=== PATIENT | male | born 2005 | race Caucasian/White ===

== ENCOUNTER 2024-10-26 21:16 | Inpatient (IN) | payer OTHER ==
[~2024-10-26] VITALS: Ht 182.9 cm; Wt 72.3 kg
[2024-10-26] MEDS ORDERED: OXYC10ER (22:44)
[2024-10-26 22:57] LABS: Source, Urine Clean Catch
[2024-10-26 23:00] LABS: BASOPHILS ABSOLUTE AUTO 0.09 K/mm3 (0.00-0.23); BASOPHILS PERCENT AUTO 1 % (0-2); EOSINOPHILS ABSOLUTE AUTO 0.17 K/mm3 (0.00-0.68); EOSINOPHILS PERCENT AUTO 2 % (0-6); Hematocrit 41.8 % (37.0-53.0); Hemoglobin 13.8 g/dL (13.5-17.5); IMMATURE GRAN ABSOLUTE AUTO 0.02 K/mm3 (0.00-0.10); IMMATURE GRAN PERCENT AUTO 0 % (0-1); LYMPHOCYTES ABSOLUTE AUTO 2.57 K/mm3 (0.84-5.20); LYMPHOCYTES PERCENT AUTO 27 % (21-46); MONOCYTES ABSOLUTE AUTO 1.13 K/mm3 (0.16-1.47); MONOCYTES PERCENT AUTO 12 % (4-13); Mean Corpuscular HGB 28.6 pg (26.0-34.0); Mean Corpuscular Volume 87 fL (80-100); NEUTROPHILS ABSOLUTE AUTO 5.54 K/mm3 (1.96-9.15); NEUTROPHILS PERCENT AUTO 58 % (41-73); Platelet Count 340 K/mm3 (150-400); RDW Coefficient Variation 14.1 % (11.7-14.2); RDW Standard Deviation 45.1 fL (35.1-46.3); Red Blood Cell Count 4.83 M/mm3 (4.30-5.90); White Blood Cell Count 9.52 K/mm3 (4.00-11.30)
[2024-10-26 23:06] LABS: Bilirubin, Urine Neg (Neg); Blood, Urine Neg (Neg); Glucose Qualitative, Urine Neg (Neg); Ketones, Urine Neg (Neg); Leukocyte Esterase, Urine Neg (Neg); Nitrite, Urine Neg (Neg); Protein, Urine Neg (Neg); Urobilinogen, Urine NORM (Normal)
[2024-10-26 23:07] LABS: Appearance, Urine Clear (Clear); Color, Urine Yellow (P-Yellow)
[2024-10-26 23:19] LABS: U Amphetamine Screen Not Detected; U Barbituate Screen Not Detected; U Benzodiazapine Screen Not Detected; U Buprenorphine Screen Not Detected; U Cannabinoids Screen Not Detected; U Cocaine Screen Not Detected; U Methadone Screen Not Detected; U Methamphetamine Screen Not Detected; U Opiates Screen Not Detected; U Oxycodone Screen Not Detected; U Phencyclidine Screen Not Detected
[2024-10-26 23:20] LABS: Ethanol (Alcohol), Blood, Med <3 mg/dL; Salicylate <1.7 mg/dL (2.8-20.0)
[2024-10-26] MEDS ORDERED: LORazepam 2 MG/ML 1ML Injection IV ONE (23:25)
[2024-10-26 23:27] LABS: Acetaminophen, Random <2.0 ug/mL (10.0-30.0); Alanine Aminotransfer (ALT/SGP 60 U/L (12-78); Albumin, Blood 3.9 g/dL (3.4-5.0); Albumin/Globulin Ratio 1.1 (0.8-1.8); Alk Phos 54 U/L (50-136); Anion Gap 11 mmol/L (3-11); Aspartate Aminotrans (AST/SGOT 38 U/L (12-37); Bilirubin, Total 0.7 mg/dL (0.1-1.0); Blood Urea Nitrogen 14 mg/dL (8-24); Bun/Creatinine Ratio 17.4 (12.0-20.0); CO2, Blood 22 mmol/L (21-32); Calcium, Blood 9.3 mg/dL (8.5-10.1); Chloride, Blood 109 mmol/L (98-108); Creatinine, Blood 0.81 mg/dL (0.60-1.20); Globulin, Blood 3.7 g/dL (2.2-4.0); Glomerular Filtration Rate 129 (60-); Glucose, Blood 108 mg/dL (70-99); Potassium, Blood 3.9 mmol/L (3.5-5.5); Sodium, Blood 138 mmol/L (136-145); Total Protein, Blood 7.6 g/dL (6.4-8.2)
[2024-10-26] MEDS ORDERED: LORazepam 1 MG Tab PO ONE (23:30)
[2024-10-26] MEDS ORDERED: DiphenhydrAMINE HCl 50 MG Cap PO ONE (23:30)
[2024-10-27] MEDS ORDERED: Acetaminophen 500 MG Tab PO ONE ×2 (00:05→13:30)
[2024-10-27 00:38] LABS: Influenza A, PCR NEGATIVE (NEGATIVE); Influenza B, PCR NEGATIVE (NEGATIVE); Resp Syncytial Virus, PCR NEGATIVE (NEGATIVE); SARS-Cov-2 (COVID-19) PCR, MMC NEGATIVE (NEGATIVE)
[2024-10-27] MEDS ORDERED: Divalproex Sodium 500 MG TABLET.DR PO ONE (13:00)
[2024-10-27] MEDS ORDERED: OLANZapine 10 MG Tab PO ONE (13:00)
[2024-10-27] MEDS ORDERED: LORazepam 2 MG Tab PO PRN (13:50)
[2024-10-27] MEDS ORDERED: Ibuprofen 600 MG Tab PO PRN (13:50)
[2024-10-27] MEDS ORDERED: Haloperidol 5 MG Tab PO PRN (13:50)
[2024-10-27] MEDS ORDERED: LORazepam 2 MG/ML 1ML Injection IM PRN (13:50)
[2024-10-27] MEDS ORDERED: Melatonin 3 MG Tab PO PRN (13:55)
[2024-10-27] MEDS ORDERED: Polyethylene Glycol 3350 17 gm PO PRN (13:55)
[2024-10-27] MEDS ORDERED: TraZODone HCl 50 MG Tab PO PRN (13:55)
[2024-10-27] MEDS ORDERED: OLANZapine ODT 10 MG Tab MM PRN (13:55)
[2024-10-27] MEDS ORDERED: DiphenhydrAMINE HCl 50 MG Cap PO PRN (13:55)
[2024-10-27] MEDS ORDERED: HydrOXYzine Pamoate 50 MG Cap PO PRN (13:55)
[2024-10-27] MEDS ORDERED: Ondansetron 4 MG SoluTab MM PRN (13:55)
[2024-10-27] MEDS ORDERED: Aluminum Hydroxide 320MG/5ML 473 ML PO PRN (14:00)
[2024-10-27] MEDS ORDERED: Calcium Carbonate 500 MG Tab Chew PO PRN (14:00)
[2024-10-27] MEDS ORDERED: Acetaminophen 325 MG TABLET PO PRN (14:00)
[2024-10-27] MEDS ORDERED: FLU VACC TS2024-25(6MOS UP)/PF 45 MCG/0.5 ML SYRINGE IM ONE (14:00)
[2024-10-27] MEDS ORDERED: Haloperidol Lactate Inj. 5 MG/ML Injection IM PRN (14:00)
[2024-10-27] MEDS ORDERED: DiphenhydrAMINE HCl 50 MG/ML 1ML Vial IV PRN (14:00)
[2024-10-27 15:34] VITALS: BP 139/79
--- NOTE | 2024-10-27 16:19 | NUR ---
ADMIT NOTE.- PT FROM THE ER DEPT AT 1445. ALERT AND ORIENTED X2. SKIN ASSESSMENT COMPLETED. NO ISSUES PRESENT. PT MUMBLING WORDS AND UNSTEADY ON FEET. GOT PT INTO THE INTAKE ROOM AND HAD HIM SIGN FORMS. EXPLAINED EACH FORM AND HE VERBALIZED RETURN OF "OK" EACH TIME. SARTED TALKING TO THE PT ON HOW HE BECAME A PT HERE. HE SAID "I AM GOD" ASKED HIM WHAT NAME HE WOULD LIKE TO USE HERE DRING HIS STAY. "CHIEF, LIKE CHIEF OF THE [place]" HE STARTED MUMBLING WHEN ASKING QUESTIONS ON HIS INTAKE. HE KEPT FALLING ASLEEP. WAS ABLE TO GET HIM TO HIS BED WITH MINIMAL ASSISSTANCE. PT UNABLE TO PROVIDE ANSWERS FOR THE REST OF INTAKE INTERVIEW.. DR. RODGERS NOTIFIED OF PT'S UNABLE TO DO INTAKE AND WANTED TO SLEEP. WILL CONTINUE TO MONITOR.
--- NOTE | 2024-10-27 17:53 | NUR ---
SHIFT SUMMARY : PT CONTINUES TO SLEEP SINCE BEING ADMITTED TO U. WILL CONTINUE TO MONITOR
[2024-10-27 20:35] VITALS: BP 105/83
[2024-10-27] MEDS ORDERED: OLANZapine 10 MG Tab PO SCH (21:00)
[2024-10-27] MEDS ORDERED: Divalproex Sodium 500 MG TABLET.DR PO SCH (21:00)
[2024-10-27] MEDS ORDERED: TraZODone HCl 100 MG Tab PO SCH (21:00)
--- NOTE | 2024-10-28 06:24 | NUR ---
NOC SHIFT SUMMARY 1929: Pt wakes from nap and interacts with female peer supportively. Ate dinner during snack time with peers. Pleasant interactions with peers and staff. Redirectable when overshares around peers. Hyperverbal throughout shift. Grandiose/shinto delusions... "I'm the first rapper appointed by God." "God killed Hell. Everyone in Hell is now in Heaven. It's beautiful." "I need to leave, but I'll come back. I just need to get my medical marijuana and buy a Nintendo Switch, but then I'll be back." 2100: Pt's dad presents outside unit. MHA spoke to him and relayed pertinent info... Pt has reportedly been in a manic state for about 1 week prior to arrival. He wants to participate in pt's care planning. Pt was vague about his living situation d/t argument with father that led to admit. Father said he was attempting to orient pt to reality, which angered pt. Later in shift pt talks favorably about his dad ("he's the smartest man I know") when MHA informed pt that his Dad stopped by. His dad now is aware of visiting/phone hours. 0530: Wakes up euphoric, restless, walking between nurses' station and his room. Unable to remain in 1 location for more than a few minutes. Made a few requests for more sleep meds and "Oxy or Percocet" for his reported back injury. Gave pt distractions (books, headphones), which were minimally effective. Reports various ideas to staff in passing. "I love comic books! I just started reading in group home. I'm going to [facility] when I'm 23." [pt picks "The Holy Bible" and "Manic" from the book cart]
[2024-10-28 08:12] VITALS: BP 132/60
[2024-10-28] MEDS ORDERED: Multivitamins 1 Tab PO SCH (09:00)
[2024-10-28] MEDS ORDERED: RisperiDONE 1 MG Tab PO ONE (12:40)
--- NOTE | 2024-10-28 17:31 | NUR ---
SHIFT SUMMARY: PT ALERT, ORIENTED AND COOPERATIVE. PT PRESENT ON THE UNIT THROUGHOUT THE DAY. TALKATIVE WITH STAFF AND PEERS. PT WITH GRANDIOUS THOUGHTS, DISCUSSED THAT HE WILL BE PRESIDENT ONE DAY, THAT HE WILL PURCHASE THE HOSPITAL AND THAT HE IS A GOD. PT STATED THAT HE WANTED TO LEAVE BUT AFTER SPEAKING THE PROVIDER HAS AGREED TO STAY UNTIL THE . HIS FATHER CAME TO VISIT AND SPOKE WITH THE RADIOLOGY THERAPIST. PT MEDICATED WITH PRN FOR PAIN AND NAUSEA.
[2024-10-28 19:55] VITALS: BP 126/84
[2024-10-28] MEDS ORDERED: RisperiDONE 1 MG Tab PO SCH (21:00)
--- NOTE | 2024-10-28 21:56 | NUR ---
Shift Assessment: Night 10/28/24 Received Pt at 1900. Pt was pacing in the hallway as he listened to music. Denied SI/HI. Endorsed AH of "hearing all gods talking to me at all times." Was noted to be responding to internal stimuli AEB talking to unseen persons. Mood euphoric, affect congruent. Intense eye contact. Denied depression and anxiety. Perseverative over discharge throughout the evening; when offered refocus cues, Pt verbalized delusions of grandure, stating he was god and the president. Med compliant; received PRNs (see MAR) for sleeplessness. EKG completed without complications. Pt participated in evening wrap-up group. He complained of nausea after exating a large snack; he was provided PRN (see MAR.) He retired to bed without complications.
--- NOTE | 2024-10-29 05:53 | NUR ---
Shift Summary: NIght 10/28/24 Pt was pacing in the hallway at the start of shift. He had a limited ability to participate in assessment due to flight of thoughts/tangential thought pattern. Denied SI/HI; endorsed AH: "all gods talk to me all the time." He verbalized delusions of grandure, including being god and the president. Also verbalized paranoia: "the SWAT team is after me." Perseverative over discharge. He was med compliant; received PRNs (see MAR) for sleeplessness, and shortly thereafter retired to bed. He awoke around 44 complaining of a headache 02/10. He was provided PRN (see MAR) for pain as well as one for increased anxiety. Soon he verbalized increased AH; received PRN (see MAR.) This proved ineffective, and by 144, Pt was demonstrating unsafe behaviors due to lack of insight, such as climbing on his bed and spinning in circles and colliding with the snowden. He was unable to be refocused. Additional PRNs (see MAR) were provided to maintain his safety (via oral route.) He was able to decrease his unsafe behaviors, and later returned to resting. Plan: Continue to provide safe, therapeutic environment in which to work on TP goals. Continue discharge planning.
[2024-10-29 08:31] VITALS: BP 122/67
--- NOTE | 2024-10-29 18:53 | NUR ---
SHIFT SUMMARY PT AxOx3 WITH INTERMITTENT DELUSIONS OF GRANDEUR. PT IS PLEASANT AND COOPERATIVE WITH CARE AND DENIES SI/HI AND AVTH. FATHER, MAORI, IN FOR VISIT TODAY. MEDICATION CHANGES ORDERED BY PROVIDER TO BE IMPLEMENTED TONIGHT. PT HAS BEEN PARTICIPATING IN PARTS OF GROUP, BUT SEEMS TO BE TOO MANIC TO SIT STILL AND FOCUS ON THE DURATION OF THE TIME. PT ASKS FOR SNACKS OFTEN AND PACES HERNANDEZ BUT INTERACTS APPROPRIATELY WITH PEERS AND STAFF THIS SHIFT. PT IS CURRENTLY PLAYING ON THE [employer] GAME CONSOLE. DENIES ANY NEEDS AT THIS TIME.
[2024-10-29 19:40] VITALS: BP 126/81
--- NOTE | 2024-10-29 20:50 | NUR ---
Shift Assessment: Night 10/29/24 Received Pt at 1900. He was alternating between being in the sensory room using the handheld video device and standing at the unit station asking numerous questions which were not relevant to him or his care. Denied SI/HI; endorsed AH of hearing "god and all the angels and President Chelle talking to me, like, every ten minutes." He was noted to be intermittently responding to internal stimuli AEB laughing/talking to unseen persons. Denied depression and anxiety. Mood upbeat, affect bright. Verbalized delusions of grandure, including stating that he was god and the [place] president. Perseverative over discharge date/time. Complained of back pain, chronic, 02/10, and received PRN (see MAR.) Med compliant. Participated in evening wrap-up group during snack. He retired to bed without complications. Plan: Continue to provide safe, therapeutic environment in which to work on TP goals. Continue discharge planning.
[2024-10-29] MEDS ORDERED: Divalproex Sodium 250 MG TABLET.DR PO SCH (21:00)
[2024-10-29] MEDS ORDERED: TraZODone HCl 100 MG Tab PO SCH (21:00)
--- NOTE | 2024-10-30 04:42 | NUR ---
Shift Summary: Night 10/29/24 Received Pt at 1900. Pt was alternating locations between the sensory room and the unit station, where he was asking numerous questions. Discussed plan for the evening, which Pt stated he would agree to "if god says it's okay." Participated in the assessment: denied SI/HI, endorsed AH of hearing god/angels and [place] continually; denied depression/anxiety. Pt verbalized delusions of grandure frequently, including being god and the [place] president. He participated in evening group during snack. Pt was med compliant, and retired to bed shortly after med pass. He awoke around 0315 and began to escallate in behaviors, such as dancing in the hallway and showering with headphones in close proximity. He requested and received PRNs (see MAR,) which resulted in a reduxtion of symptoms and allowed Pt to return to resting. No further complications noted. Please see Shift Assessment for additional details on assessment.
--- NOTE | 2024-10-30 17:30 | NUR ---
SHIFT SUMMARY PT A/O X3; PLEASANT AND COOPERATIVE WITH CARE. PT CONTINUES TO BE MANIC WITH DELUSIONS OF GRANDEUR. HE CURRENTLY BELIEVES THAT HE IS GOD AND THE PRESIDENT. PT ALSO WANTS TO BE DISCHARGED BUT IS EASILY REDIRECTABLE. SPEECH IS PRESSURED AND TANGENTIAL. HE ENDORSED SOME SI THIS MORNING BUT SAYS HE HAS NO PLAN OR INTENTION TO ACT ON THESE THOUGHTS. HE REPORTS SOME AUDITORY HALLUCINATIONS AND HEARS "GOD" OFTEN. PT'S FATHER CAME TO VISIT TODAY AND THE VISIT WENT WELL. PT'S FATHER HAS PERMISSION TO VISIT AGAIN TOMORROW AT 11:30. PT CONTINUES TO BE MONITORED VIA Q15 ROUNDING FOR SAFETY.
--- NOTE | 2024-10-31 04:03 | NUR ---
SHIFT SUMMARY: ASSUMED CARE FROM PRIOR SHIFT. PATIENT IS A/OX3, ABLE TO VOICE NEEDS AND HAVE MEANINGFUL YET DELUSIONAL CONVERSATION. HE CONTINUES TO BE MANIC HOWEVER, THIS HAS SUBSIDED. HE STILL HAS AH IN WHICH "GOD" IS TALKING TO HIM AND GIVIVING DIRECTIONS ON WORLDLY MATTERS. "GOD WANTS ME TO SOLVE WORLD HUNGER AND BE AN AWSOME RAPPER". HE CURRENTLY DENIES ANY SI OR VH. HE ENJOYS ENTER ACTING WITH STAFF AND OTHER PATIENTS. HE OFTEN HAS TO BE DIRECTED AWAY FROM OTHER PATIENTS, HE CAN BE OVER WELMING TO THEM. HE IS COMPLIANT WITH MEDICATIONS, CARE AND ASSESSMENT. HE DOES PARTICIPATE WITH GROUP AND SNACK TIME. HE DID GO TO BED WITHOUT ENCOUAGEMENT. HE DID SLEEP UNTIL 2AM. WITH LITTLE DIRECTION HE DID GO BACK TO SLEEP. HIS SLEEP PATTERN IS STARTING TO IMPROVE, SLEEPING LONGER HOURS WITHOUT INTERUPTION. WE WILL CONTINUE TO MONITOR EVERY 15 MIN FOR COMFORT AND SAFETY. NO NOTED BEHAVIORS OR ISSUES AT THIS TIME.
--- NOTE | 2024-10-31 05:15 | NUR ---
PATIENT AWAKE AT 430AM. HE IS GOING TO AND FROM HIS ROOM AND SR. RN REQUESTED HE GO BACK TO SLEEP OTHER PATIENTS ARE SLEEPING, AND HE IS BEING TO LOUD, PATIENT C/O BACK PAIN AND NAUSEA. HE IS NOT DEMONSTRATING S/S OF EITHER. RN DOES MEDICATE PER ORDER WITH VISTRIL HE NEEDS MORE SLEEP AND APPEARS MORE ANXIOUS. HE IS ABLE TO REDIRECT AND IS COMPLIANT WITH MEDICATIONS. WE WILL CONTINUE TO MONIOTR EVERY 15 MINUTES FOR SAFETY AND COMFORT. RN ALSO GAVE TYLENOL AND ZOFRAN. I WILL REASSESS IN 60 MINUTES.
--- NOTE | 2024-10-31 11:48 | NUR ---
CALL PLACED TO [facility] ON 10/31/24. MEDICAL RECORDS DEPT NOT OPEN OVER THE WEEKEND, SO VOICEMAIL WAS LEFT TO REQUEST MEDICAL RECORDS FOR PT. VOICEMAIL STATED THAT CALLS WOULD BE RETURNED IN ONE BUSINESS DAY.
[2024-10-31 12:03] VITALS: BP 132/77
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
--- NOTE | 2024-11-01 04:08 | NUR ---
SHIFT SUMMARY: ASSUMED CARE FROM PRIOR SHIFT. PATIENT IS A/O X3, ABLE TO VOICE NEEDS. HE IS STILL HAVING GRANDIOSE DELUSIONS "GOD IS TELLING ME TO STAY A WAKE" "I WILL BUY YOU ALL HOUSES WHEN I GET OUT". HE IS COMPLIANT WITH DIRECTIONS BUT OFTEN NEEDS REMINDERS TO PRIOR INSTRUCTIONS. HE WILL OFTEN ASK FOR SEVERAL THINGS AT A TIME. EXAMPLE: CAN I PLEASE HAVE A SNACK, HOT TEA, A MOVIE AND THE GAME SYSTEM. RN REMINDS HIM THAT HIS BRAIN IS MOVING FASTER THAN OTHERS. HE IS ENCOURAGED TO WRITE THOUGHTS AND IDEAS DOWN. HE IS COMPLIENT WITH MEDICATIONS, ASSESSMENTS AND CARE. HE CURRENTLY DENIES SI, VH AND AH. HE DOES OFTEN REFER TO WHAT GOD IS TELLING HIM ALTHOUGH HE DOESSN'T CONSIDER THIS AH. HE DOES GO TO BED WITHOUT ENCOURAGEMENT HOWEVER, HE WAKES UP THROUGHOUT THE NIGHT WANTING DRINKS, SNACKS, BOOKS TO READ OR THE SR. HE IS REQUESTED TO GO BACK TO HIS ROOM AND NOT GIVE HIM REQUESTED THINGS HE CAN GO BACK TO SLEEP LONG HE ISN'T OVER STIMULATED. WE WILL CONTINUE TO MONITOR EVERY 15 MIN FOR SAFETY AND COMFORT. HE IS CURRENTLY SLEEPING.
--- NOTE | 2024-11-01 05:59 | NUR ---
PATIENT HAS BEEN UP AND DOWN FOR THE LAST 2 HOURS. HE DID RETURN TO HIS ROOM AROUND 530AM. HE DID FALL BACK TO SLEEP. NO NOTED ISSUES OR BEHAVIORS. WE WILL CONTINUE TO MONITOR EVERY 15MIN FOR SAFETY AND COMFORT.
[2024-11-01 08:05] VITALS: BP 125/72
--- NOTE | 2024-11-01 18:01 | NUR ---
SHIFT SUMMARY PT AxOx4 WITH INTERMITTENT DELUSIONS OF GRANDEUR SUCH "I AM THE [place] [place] AND THE YOUNGEST PRESIDENT. I AM A TRILLIONAIRE. I AM BUYING THE HOSPITAL AND TAKING ALL OF THE NURSES ON ANY VACATION OF THEIR CHOOSING. 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 HE FOLLOWS HIS CARE PLAN INCLUDING ATTENDING GROUPS, TAKING MEDS PRESCRIBED AND MINGLING APPROPRIATELY ON THE UNIT WITH STAFF AND PEERS. HE ALSO PACES THE HALLS AND FIXATES ON WHEN HE CAN USE THE PHONE AND FREQUENTLY STATES HE IS LEAVING TODAY. PT IS EASILY REDIRECTABLE AND RESPECTFUL WITH INTERACTIONS. PT IS CURRENTLY SITTING IN GROUP ROOM WATCHING A MOVIE WITH STAFF AND PEERS. DENIES ANY NEEDS AT THIS TIME.
--- NOTE | 2024-11-02 04:57 | NUR ---
LACTATION SPECIALIST SUMMARY Patient is alert and intermittantly oriented, pleasant and cooperative with care. He has a flight of grandiose ideas including becoming Shivam of [employer] and owning the health system. Julien was active in the milieu until approximately 2100 when he went to bed. At the time of this note, he is still sleeping. No thoughts of SI,HI, however patient does state that he sees the face of god speaking to him in the lights in the sensory room. Will continue close observation every 15 minutes for comfort and safety.
[2024-11-02 09:06] VITALS: BP 104/65
--- NOTE | 2024-11-02 18:34 | NUR ---
SHIFT SUMMARY PT AxOx4 WITH INTERMITTENT GRANDIOSE DELUSIONS, PLEASANT AND COOPERATIVE WITH CARE. PT IS FOLLOWING TREATMENT PLAN INCLUDING TAKING MEDS PRESCRIBED, PARTICIPATING IN GROUPS AND MINGLING ON THE UNIT WITH STAFF/PEERS APPROPRIATELY. PT HAD VISIT WITH HIS DAD THIS SHIFT AND SPOKE ON THE PHONE MULTIPLE TIMES WITH OTHER FAMILY MEMBERS. 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 HE ALSO ENJOYED PLAYING SARAH CONSOLES SEVERAL TIMES TODAY. PT IS CURRENTLY IN HIS ROOM RESTING ON HIS BED. DENIES ANY NEEDS AT THIS TIME.
[2024-11-02] MEDS ORDERED: Prazosin HCl 1 MG Cap PO SCH (21:00)
[2024-11-02 22:21] VITALS: BP 137/74
--- NOTE | 2024-11-03 05:31 | NUR ---
Patient is alert and grandly delusional. He is very pleasant and cooperative with cares. C/O posterior headache in evening and again in morning which were relieved with Tylenol in the evening and 600mg ibuprophen in the AM. No thoughts of SI or HI but still with AV hallucinatinos of God. Will contoinue close monitoring every 15 minutes for comfort and safety
[2024-11-03 08:03] VITALS: BP 107/57
[2024-11-03 09:24] LABS: Valproic Acid 61.3 ug/mL (50.0-100.0)
[2024-11-03] MEDS ORDERED: Divalproex Sodium 500 MG TABLET.DR PO ONE (09:55)
[2024-11-03] MEDS ORDERED: Divalproex Sodium 500 MG TABLET.DR PO SCH (21:00)
[2024-11-03 21:02] VITALS: BP 140/77
--- NOTE | 2024-11-04 03:18 | NUR ---
SHIFT SUMMARY: ASSUMED CARE FROM PRIOR SHIFT. PATIENT IS A/OX3 ABLE TO VOICE NEEDS. HE CONTINUES TO HAVE GRANDIOSE DELUSIONS DEMONSTRATED "I WILL BUY THIS HOSPITAL AND BUY YOU A HOUSE WHEN I GET OUT OF HERE". HE STRUGGLES WITH HIS SLEEP CYCLE AND IS UP EVERY 1-2 HRS ASKING FOR MEDICATIONS, SNACK AND DRINKS. PRN MEDICATIONS FOR NAUSEA, SLEEP AND HEART BURN. HE DENIES SI, VA AND AH. HE NEEDS TO BE REMINDED TO HAVE A SCRUB SHIRT ON THIS SHIFT. THERE IS A NEW YOUNG, FEMALE PATIENT THAT SEEMS TO BE ENAMORED WITH HIM PRESENTLY SO, FULL SCRUBS NEED TO BE WORN. I WILL TRY TO GIVE HIM HIS PM MEDICATIONS LATER AND SEE IF THIS IMPROVES HIS SLEEP PATTERN. WE WILL CONTINUE TO MONITOR EVERY 15 MIN FOR COMFORT AND SAFETY. HE IS CURRENTLY SLEEPING. NO NOTED BEHAVIORS OR ISSUES.
--- NOTE | 2024-11-04 06:06 | NUR ---
PATIENT SLEPT 7 HRS WITH SEVERAL DISRUPTIONS.
[2024-11-04 08:11] VITALS: BP 114/67
--- NOTE | 2024-11-04 17:16 | NUR ---
SHIFT SUMMARY: PT ACTIVE AND PLEASANT THIS SHIFT. HE PARTICIPATED IN ACTIVITIES AND GROUPS. HE DID HAVE SOME RACING THOUGHTS AND SCATTERED CONVERSATION WITH HIS FATHER SPEAKING OF GRANDIOUS IDEAS AND STORIES, BUT PLEASANT. HE HAD ONE MOMENT IN THE AM WHEN HE SEEMED SLIGHTLY FRUSTRATED ASKING FOR HIS STRESS BALL D/T FEELING FRUSTRATED ABOUT BEING IN [facility] AND WANTING TO LEAVE. AT LUNCH PT C/O INDIGESTION AND NAUSEA AND REQUESTED ZOFRAN. NO OTHER ISSUES. PT WAS COMPLIANT WITH ALL MEDS AND MEDICATED FOR 5/10 ALL OVER PAIN IN THE EVENING.
--- NOTE | 2024-11-04 23:01 | NUR ---
PATIENT VSITING WITH DAD AT BEGINNING OF SHIFT. HE IS SEEMINGLY HAPPY AND PARTICIPATING IN GROUPS AND SNACK. HE REMAINS WITH GRANDIOSE THOUGHTS HE INFORMS OTHER PATIENTS AND STAFF "NEW HOUSES FOR EVERYONE".
[2024-11-04 23:35] VITALS: BP 145/70
--- NOTE | 2024-11-05 02:51 | NUR ---
SHIFT SUMMARY: ASSUMED CARE FROM PRIOR SHIFT. PATIENT IS A/OX4, ABLE TO VOICE NEEDSAND HAVE MEANINGFUL CONVERSATION. HE HAD A VISIT FROM HIS FATHER AT BEGINNING OF SHIFT. WHEN ASKED "HOW WAS YOUR VISIT?' PATIENT SEEMED UNINTERESTED AND STATED "MY DAD DOESN'T WANT ME TO USE DRUGS OR ALCOHOL ANY MORE" THAN WALKED AWAY. HIS JOSH HAS SUBSIDED HOWEVER, HE CONTINUES WITH DELUSIONAL BEHAVIORS DEMONSTRATED BY, "I'M GOING TO BE PRESIDENT IN 2027 SO, THATS GOOD NEWS". HE IS COMPLIANT WITH MEDICATIONS, CARE AND ASSESSMENT. HE CURRENTLY DENIES ANY SI, AH OR VH. I DID GIVE HIS PM MEDICATIONS LATER THIS EVEING = 9:30PM. I DO BELEIVE THIS HAS IMPROVED HIS SLEEP CYCLE/PATTERN PATIENT IS STILL CURRENTLY SLEEPING AND HAS NOT GOTTEN UP. WE WILL CONTINUE TO MONITOR EVERY 15MIN FOR SAFETY AND COMFORT. NO NOTED BEHAVIORS OR ISSUES.
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
[2024-11-05 07:33] VITALS: BP 115/61
[2024-11-05] MEDS ORDERED: Paliperidone Palmitate 234 MG/1.5 ML SYR IM SCH ×2 (11:40→17:00)
--- NOTE | 2024-11-05 18:01 | NUR ---
SHIFT SUMMARY: PT AWAKE AND CHEERFUL THIS AM, COMPLIANT WITH ALL MEDS THROUGHOUT THE DAY. HE WAS GIVEN PRN FOR DYSPEPSIA IN THE AM. DENIED SI/HI/AH/VH, BUT STATES "I'M JUST LISTENING TO MY GOD." HE WAS COOPERATIVE WITH GROUPS AND ENGAGED IN ACTIVITIES. HE IS FRIENDLY TO THE OTHER PATIENTS AND SPENT MOST OF THE DAY IN THE GROUP ROOM OR IN GROUP ACTIVITIES. HE TOOK ONE SMALL NAP FOR ABOUT [address] YANCEY WAS IN FOR AN EVALUATION WITH PT FOR POSSIBLE GUARDIANSHIP ESTABLISHMENT WITH FATHER. PT RECIEVED HIS FIRST DOSE OF INVEGA TODAY IN THE L DELTOID. HE TOLERATED IT WELL. FATHER WAS IN TO VISIT PT THIS EVENING.
[2024-11-05] MEDS ORDERED: TraZODone HCl 100 MG Tab PO SCH (21:00)
--- NOTE | 2024-11-05 22:04 | NUR ---
Shift Assessment: Received Pt at 1900. Pt denied SI/HI; endorsed AH of "hearing all the gods." Denied depression and anxiety. Mood upbeat, affect bright. Appropriate eye contact. Pt verbalized delusions of grandiosity, including offering to make staff co-owners of the facility and creating free healthcare for all. Denied pain and physical complaints. AIMS negative. Med compliant; received PRN (see MAR) for sleeplessness. Pt participated in evening wrap-up group during snack. He demonstrated poor verbal boundaries with female peer by exchanging personal information and arranging "dates." Encouraged improved boundaries; Pt agreed to consider modifying behaviors. Other interactions with peers were appropriate. He was not noted to excessively pace, and was able to verbalized multiple coping skills for handling stress. Retired to bed without complications.
[2024-11-05 23:21] VITALS: BP 123/68
--- NOTE | 2024-11-06 04:09 | NUR ---
Shift Summary Note Pt was in the dayroom watching tv at the start of shift. Discussed plan for the evening with Pt, with which he was in agreement. Pt fully participated in assessment, during which he denied SI/HI/AVH. He participated in evening wrap-up group, and ate 100% of snack. Pt was med compliant, receiving PRNs (see MAR) for sleeplessness. He interacted appropriately with staff and peers, with the exception of poor boundaries with a female peer d/t exchanging personal information and arranging "dates." He agreed to reconsider engaging in such behaviors. After snack, Pt watched tv until retiring to bed. He was safe throughout the shift.
[2024-11-06 08:10] VITALS: BP 134/77
--- NOTE | 2024-11-06 16:53 | NUR ---
SHIFT NOTE: PT DENIES ANY SI/HI/AH/VH THIS SHIFT. HE WAS COMPLIANT WITH MEDICATION ADMINISTRATIONS. HE C/O SEVERE DAVILA DURING THIS SHIFT AND WAS MEDICATED WITH ADVIL. HE C/O NAUSEA PRIOR TO BREAKFAST BUT IT RESOLVED WHEN HE STARTED EATING BREAKFAST SO HE DID NOT GET PRN FOR NAUSEA. HE PARTICIPATED IN GROUP ACTIVITY TIMES AND TOOK A NAP AFTER LUNCH. HE STILL SPEAKS WITH GRANDEUR STORIES, PLEASANTLY, BUT HIS GOD SPEAK APPEARS TO HAVE BEEN LESS THIS SHIFT.
--- NOTE | 2024-11-06 19:23 | NUR ---
Combination of ibuprophen and tylenol given for 5/10 headache and 5/10 low back ache. will continue monitoring
[2024-11-06 21:58] VITALS: BP 117/64
--- NOTE | 2024-11-07 04:19 | NUR ---
Patient is alert, pleasant and cooperative with care. Still having grandiose hallucinations. Out in the milieu participating in all activities prior to HS. Ibuprophen and tylenol given for headache which comes and goes throughout the day according to the patient. Will continue close monitoring every 15 minutes for safety and comfort
[2024-11-07 08:18] VITALS: BP 129/76
--- NOTE | 2024-11-07 17:38 | NUR ---
SHIFT SUMMARY PT AA&OX4. PLEASANT AND COOPERATIVE WITH CARE. SPEECH AND EYE CONTACT APPROPRIATE. PT HAS TAKEN TWO NAPS TODAY. HE HAS CLEARED SIGNIFICANTLY EVIDENCED BY SLEEP, SLOWED AND DILIBERATE SPEECH. DELUSIONS OF GRANDEUR HAVE DEMINISHED. PT IS NOW QUESTIONING IF THE VOICES HE HEARS ARE ACTUALLY HIS OWN THOUGHTS. PT REQUESTED EDUCATION ON HIS DIAGNOSIS AND TREATMENT PLAN. PT EDUCATED ON MEDICATIONS AND DISEASE PROCESS. THIS WILL NEED REINFORCED. SECOND SHOT OF INVEGA DUE TOMORROW. WILL CONTINUE POC
--- NOTE | 2024-11-07 19:14 | NUR ---
PATIENT'S FATHER CALLED ASKING IF HE MAY GET A TENATIVE (OR PLANNED) DATE FOR SHAILA'S DISCHARGE. HE IS HOPING FOR A CALL FROM EITHER JANET Ocampo OR THE DOCTOR WHEN INFORMATION IS AVAILABLE
[2024-11-07 20:40] VITALS: BP 132/67
--- NOTE | 2024-11-08 03:55 | NUR ---
Patient out it TV room with peers early in shift. Spoke with father who asked to speak with this RM regarding the date of Julien's discharge. Explained that as time raymundo closer, staff would be contacting him at earliest time to give him this information. Patient ate 100% of his snack, Took advil and tylenol for generalized body aches in addition to his regular medications then went to bed. No SI,HI or AVH noted on assessment last evening. No grandiose comments or statements made in this nurses presence overnight. Will continiue close monitoring
[2024-11-08 08:08] VITALS: BP 118/75
[2024-11-08] MEDS ORDERED: Paliperidone Palmitate 156 MG/ML SYR IM SCH (09:00)
--- NOTE | 2024-11-08 12:35 | NUR ---
Pt Communication with Father Per RN Request, Called pts father to see if he was able to set up appointments for pt in [place]. Left voicemail to have him return my call. Charge also request I let pt father know his anticipated discharge day was in voicemail . Will update well testing operator.
--- NOTE | 2024-11-08 17:05 | NUR ---
SHIFT SUMMARY PT [id number]. PLEASANT AND COOPERATIVE WITH CARE. PT DENIES SI/HI AND AVTH DURING AM ASSESSMENT. PT'S DEMEANOR HAS BEEN GENERALLY CALM TODAY WITH MINIMAL MENTIONS OF HIS PREVIOUS MANIC BASED DELUSIONS. PT HAS BEEN FOLLOWING CARE PLAN THIS SHIFT INCLUDING TAKING ALL MEDS PRESCRIBED, ATTENDING MILEU GROUPS AND MINGLING APPROPRIATELY WITH STAFF/PEERS. PT RECEIVED HIS SECOND INVEGA INJECTION THIS SHIFT WITHOUT DIFFICULTY. PT'S FATHER, TRANG WAS UPDATED ON PLAN OF CARE VIA PHONE TODAY. PT IS EXPECTED TO DC ON 11/10/24. TRANG PROVIDED [facility]'S THERAPIST INFO AND THIS RN REACHED OUT AND LEFT MESSAGE TO ATTEMPT TO SCHEDULE FOLLOW UP APPOINTMENTS. PT IS CURRENTLY WATCHING TV IN GROUP ROOM. DENIES ANY NEEDS AT THIS TIME.
[2024-11-08] MEDS ORDERED: Nicotine Polacrilex 2 MG Gum PO PRN (17:55)
--- NOTE | 2024-11-09 04:08 | NUR ---
Patient is alert and oriented and pleasant and cooperative with care. He was active in the milieu with his peers and enjoyed snack before going to bed. No SI,HI or AVH noted on evening assessment. Looking forward to discharge home on Friday. will continue close monitoring every 15 minutes for comfort and safety.
[2024-11-09 08:23] LABS: CHOL/HDL RATIO 2.1; Cholesterol 124 mg/dL (50-200); HDL Cholesterol 58 mg/dL (>39); Low Density Lipoprotein Chol 56 mg/dL (0-110); Triglycerides 52 mg/dL (30-140); Very Low Density Lipoprot Chol 10 mg/dL (6-28)
[2024-11-09 08:32] LABS: Valproic Acid 75.6 ug/mL (50.0-100.0)
--- NOTE | 2024-11-09 17:28 | NUR ---
SHIFT SUMMARY PT [id number]. PT IS PLEASANT AND COOPERATIVE WITH CARE. PT HAS BEEN FOLLOWING CARE PLAN THIS SHIFT INCLUDING TAKING MEDS PRESCRIBED, ATTENDING GROUPS AND MINGLING APPROPRIATELY WITH STAFF/PEERS. PT'S BEHAVIOR HAS BEEN CALM AND ENGAGED T/O THE DAY WITH NO MANIC BEHAVIORS NOTED. PT IS EXPECTING TO DC TOMORROW HOME WITH HIS FATHER. FOLLOW UP APPOINTMENTS FOR MEDICATION MANAGEMENT AND THERAPY IN [place] WERE SCHEDULED AND COPIED TO DC ORDER. PT IS CURRENTLY SITTING IN DINING ROOM EATING DINNER. DENIES ANY NEEDS AT THIS TIME.
[2024-11-09 20:49] VITALS: BP 103/69
--- NOTE | 2024-11-10 07:44 | NUR ---
pATIENT IS ALERT AND ORIENTED, VERY PLEASANT AND COOPERATIVE WITH CARE. hE HASA HAD NO SI,HI OR AVH NOTED ON EVENING ASSESSMENT. UP IN THE MILIEU WITH PEERS AFTER DINNER, THEN TO BED AT 2200 AT LIGHTS OUT. EXCITED ABOUT DISCHARGE LATER TODAY. WILL CONTINUE CLOSE OBSERVATION EVERY 15 MINUTES FOR SAFETY AND COMFORT
[2024-11-10 08:23] VITALS: BP 120/50
--- NOTE | 2024-11-10 17:09 | NUR ---
SHIFT NOTE: PT A&O X4 THIS SHIFT, PARTIDIPATED IN GROUPS AND ACTIVITIES AND INTERACTED WITH PEERS WELL. HE DENIED ANY SI/HI/AH/VH. THIS NURSE DID NOT NOTICE ANY GOD SPEAK DURING THIS SHIFT AND PT WAS COMPIANT WITH ALL MEDS AND MEALS. HE IS TO D/C HOME WITH HIS FATHER THIS EVENING. 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 D/C MEDS WERE CALLED IN TO THE [facility]. PT HAD ONE DOSE OF NICORETTE GUM AND NO OTHER PRN'S THIS SHIFT. PT HAS BEEN PLEASAT AND COOPERATIVE.
[2024-11-10] MEDS ORDERED: DIVA500ER PO (17:19)
[2024-11-10] MEDS ORDERED: NICO2 PO (17:20)
[2024-11-10] MEDS ORDERED: PRAZ1 PO (17:31)
[2024-11-10] MEDS ORDERED: TRAZ100 PO (17:31)
[2024-11-10] MEDS ORDERED: INVEGA SUS234 MG/1.1 IM (17:32)
[2024-11-10 22:24] VITALS: BP 130/66
--- NOTE | 2024-11-10 23:25 | NUR ---
DISCHARGE SUMMARY PT PRESENT IN GROUP ROOM AT START OF SHIFT. DENIES ANY SI, HI OR AVH. PT STATED HE IS EXCITED TO BE GOING HOME. PT MEDICATED WITH PRN TYLENOL FOR A HEADACHE WITH GOOD RELIEF. HE HAD EVENING SNACK, WAS COMPLIANT WITH SCHEDULED MEDICATIONS. PT'S FATHER ARRIVED AROUND 2300. PT'S BELONGINGS WERE RETURNED. DISCHARGE INSTRUCTIONS REVIEWED WITH THE PATIENT AND PT'S FATHER. PT INSTRUCTED TO FOLLOW UP RECOMMENDED, TAKE ALL MEDS PRESCRIBED AND GO TO THE ER IF SYMPTOMS REOCCUR. PT DEPARTED WITH HIS FATHER AT 2310.
== END 2024-11-10 23:10 | disposition home or self-care (01) | DRG 885 ==
LOC: ER 21:16 → EOR 21:17 → BHU 10-27 12:26
PROVIDERS: Psychiatry & Neurology Psychiatry; Student in an Organized Health Care Education/Training Program; ADMIT Student in an Organized Health Care Education/Training Program
DX: F31.2 Bipolar disorder, current episode manic severe with psychotic features (principal); F43.10 Post-traumatic stress disorder, unspecified; F29 Unspecified psychosis not due to a substance or known physiological condition; F17.210 Nicotine dependence, cigarettes, uncomplicated; F10.90 Alcohol use, unspecified, uncomplicated; Z79.891 Long term (current) use of opiate analgesic; Z28.21 Immunization not carried out because of patient refusal
CPT/HCPCS: 0241U; 36415; 80053; 80061; 80164; 80320; 81003; 83036; 85025; 93005; 93010; 99285-25; A9270; G0378; G0480

== ENCOUNTER 2025-10-24 21:49 | Emergency (ER) | payer OTHER ==
[~2025-10-24] VITALS: Ht 182.9 cm; Wt 88.5 kg
[~2025-10-24 21:49] MED LIST: DIVA500ER PO; INVEGA SUS234 MG/1.1 IM; NICO2 PO; OXYC10ER; PRAZ1 PO; TRAZ100 PO
[2025-10-24] MEDS ORDERED: HYDROcodone 5-APAP 325 TAB PO ONE (22:05)
[2025-10-24] MEDS ORDERED: HYDR1TAB94 PO (22:58)
[2025-10-24] MEDS ORDERED: Lidocaine 4% 1 Patch TOP ONE (23:15)
== END 2025-10-24 23:25 | disposition home or self-care (01) ==
LOC: ER 21:49
DX: S43.101A Unspecified dislocation of right acromioclavicular joint, initial encounter (principal); V89.2XXA Person injured in unspecified motor-vehicle accident, traffic, initial encounter; F20.9 Schizophrenia, unspecified; Z79.899 Other long term (current) drug therapy
CPT/HCPCS: 71046; 73030; 73590; 99284-25; A9270